=== PATIENT | female | born 1985 | race African-American/Black ===

== ENCOUNTER 2020-04-03 09:25 | Emergency (ER) | payer BC ==
[2020-04-03 11:07] LABS: HEMOGLOBIN 13.6 gm/dl (12.3-15.3); RED BLOOD COUNT 4.71 M/UL (4.00-5.10); WHITE BLOOD COUNT 9.6 K/UL (4.5-11.0)
[2020-04-03 11:27] LABS: BUN/CREATININE RATIO 13 (0-10)
== END 2020-04-03 12:30 | disposition home or self-care (01) ==
LOC: ER1 09:25
PROVIDERS: Emergency Medicine
DX: R07.2 Precordial pain (principal); Z20.822 Contact with and (suspected) exposure to COVID-19
CPT/HCPCS: 71045; 80053; 82550; 82553; 83874; 83880; 84484; 85025; 93005; 99285; J1885; U0002